=== PATIENT | male | born 1940 | race Caucasian/White ===

== ENCOUNTER → 2024-09-11 16:09 | Outpatient (CLI) | payer MEDICARE, SELFPAY | PROVIDERS: Visit Provider Physician Assistant Medical | DX: R30.0 Dysuria (principal) | CPT/HCPCS: 87086 ==

== ENCOUNTER → 2024-10-27 14:25 | Outpatient (CLI) | payer MEDICARE, SELFPAY | PROVIDERS: Visit Provider Nurse Practitioner Family | DX: R30.0 Dysuria (principal) | CPT/HCPCS: 87086 ==

== ENCOUNTER 2025-02-08 13:48 | Emergency (ER) | payer MEDICARE, SELFPAY ==
[2025-02-08] VITALS (25 sets, daily range): BP systolic 119–172; BP diastolic 64–123; PULSE 50–64; RESP 12–35; TEMP 36.8–36.9; O2SAT 91–98; BMI 29.2
--- NOTE | 2025-02-08 13:57 | EKG_ITS ---
[address] [address] Test Date: 2025-02-08 Pat Name: Ashvin Perdomo Department: Room: Gender: Male Dumper: : 1940 Requested By: Order Number: [id number] Reading MD: Grabiel Vaughn MD Measurements Intervals [place] Rate: 50 P: SC: QRS: 40 QRSD: 166 T: 152 QT: 480 QTc: 437 Interpretive Statements Ventricular-paced rhythm Electronically Signed On 02-08-2025 15:04:39 PDT by Grabiel Vaughn MD
--- NOTE | 2025-02-08 14:12 | DI.RAD.S_ITS ---
PROCEDURE: XR CHEST 1V INDICATIONS: chest pain TECHNIQUE: One view of the chest was acquired. COMPARISON: None. FINDINGS: Surgical changes and devices: Left pacemaker with leads terminating in the projection of the right atrium and right ventricle. Lungs and pleura: Low lung volumes without a focal consolidation. No pleural effusions or pneumothorax. Mediastinum: Mediastinal contours appear normal. Heart size is normal. 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 Overlying soft tissues appear unremarkable. IMPRESSION: No acute cardiothoracic process. Dictated by: Sean Milner M.D. on 02/08/2025 at 14:04 Approved by: Sean Milner M.D. on 02/08/2025 at 14:05
[2025-02-08 14:35] LABS: Hematocrit 43.6 % (41-53); Hemoglobin 15.1 g/dL (13.5-17.5); Mean Corpuscular HGB Conc 34.5 % (30-36); Mean Corpuscular Hemoglobin 33.2 PG (26-34); Mean Corpuscular Volume 96.1 fL (80-100); Platelet Count 205 X10^3/uL (150-400); Red Blood Cell Count 4.54 X10^6/uL (4.5-5.9); Red Cell Distribution Width 14.9 % (11.6-14.8); White Blood Cell Count 8.7 X10^3/uL (4.5-11.0)
[2025-02-08 14:36] LABS: Add Manual Diff / Slide Review YES
[2025-02-08 14:41] LABS: Prothrombin Time 11.3 SECONDS (9.4-12.5)
[2025-02-08 14:44] LABS: PTT Partial Thromboplastin Tim 32 SECONDS (25.1-36.5)
--- NOTE | 2025-02-08 14:50 | PC.NURSE ---
Pt reports having [employer] pacemaker. confirmed with cxr that pacer is [employer]. last time batteries were changed was [id number] per patient. attempted interogation without success. continues to states interrogation failed. EKG appears to have adequate capture that coincides with pulse. HR continues to be 50. unclear what rate pacer is set at. Pt does not have card in wallet to troubleshoot. AAOx3. denies CP or SOB at this time.
[2025-02-08 14:57] LABS: Neutrophils Absolute Manual 6351 /uL (3000-5900); Total Cells Counted 100
[2025-02-08 14:58] LABS: RBC Morphology Normal Morphology
[2025-02-08 15:01] LABS: Alanine Aminotransferase 56 IU/L (<50); Alkaline Phosphatase 78 U/L (38-126); Aspartate Aminotransferase 71 IU/L (17-59); BUN Creatinine Ratio 16.9 (6-22); Bilirubin Total 0.5 mg/dL (0.2-1.3); Blood Urea Nitrogen 21 mg/dL (9-20); Carbon Dioxide 21 mmol/L (22-32); Creatine Kinase 158 U/L (55-170); Estimated Glomerular Filt Rate 57 mL/min (>60); HEMOLYSIS 32 (0-50); Total Protein 6.4 g/dL (6.3-8.2)
[2025-02-08 15:09] LABS: Albumin 4.3 g/dL (3.5-5.0); Calcium 9.5 mg/dL (8.4-10.2); Chloride 107 mmol/L (98-107); Globulin 2.1 g/dL (1.7-4.1); Glucose 95 mg/dL (80-110); Lipase 99 U/L (23-300); Magnesium 1.9 mg/dL (1.6-2.3); NT-proBNP (BNP-Adult 18+) 1020 pg/mL (<450); Potassium 3.9 mmol/L (3.4-5.1); Sodium 140 mmol/L (137-145)
[2025-02-08 15:11] LABS: Troponin I 0.167 ng/mL (0.01-0.034)
--- NOTE | 2025-02-08 15:24 | DI.CT.S_ITS ---
PROCEDURE: CT ANGIO CHEST PE PROTOCOL INDICATIONS: inc trop, eval for PE TECHNIQUE: After the administration of intravenous contrast, 2 mm thick sections acquired from the pulmonary apices to the posterior costophrenic angles. 3-dimensional maximum intensity projection (MIP) coronal and sagittal reformats were then acquired through the thorax. For radiation dose reduction, the following was used: automated exposure control, adjustment of mA and/or kV according to patient size. COMPARISON: [facility], CR, XR CHEST 1V, 02/08/2025, 14:21. FINDINGS: Image quality: Diagnostic. Pulmonary arteries: Pulmonary arteries are normal in size, and demonstrate no intraluminal filling defects to suggest central pulmonary embolism. Lower Neck: No enlarged lymph nodes. Thyroid: Not well seen. Axillae: No enlarged lymph nodes. Chest Wall: A pacer device is seen. Bones: Age-appropriate bony degenerative changes are seen, including involving the shoulders. Lungs and Pleura: No pneumothorax or pleural effusions. Right middle lobe pulmonary nodules are seen, including an 8 mm nodule series 5 image 135. Low lung volumes are noted. This causes a crowded appearance to the lung markings and limits evaluation. Heart: Heart size is normal. No pericardial effusion. Thoracic Vessels: The ascending thoracic aortic aneurysm is mildly aneurysmal, measuring 4.3 cm transversely on coronal images. Mediastinum and Adriana: No enlarged lymph nodes. Esophagus: No wall thickening. No hiatal hernia. Upper Abdomen: Low-density presumed cysts can be seen involving the liver. The visualized portions of the upper abdominal structures are otherwise unremarkable for imaging technique. IMPRESSION: No pulmonary embolus. No acute cardiopulmonary process. Additional findings: Pacer device Mildly aneurysmal ascending thoracic aorta, 4.3 cm Presumed liver cysts Dictated by: John Shook M.D. on 02/08/2025 at 15:07 Approved by: John Shook M.D. on 02/08/2025 at 15:09
--- NOTE | 2025-02-08 16:15 | ED.ARRPALP ---
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 Denies history of coronary artery disease. No diabetes, no hypertension, nonsmoker. Takes statin for lipids. He is a resident at [facility], this morning attempted to walk by himself from [facility] to adjacent [employer], when he was walking back he felt quite short of breath, bending over due to his shortness of breath. He did not recall having any chest discomfort, nor any nausea or vomiting or diaphoresis. No neck pain or back pain or arm pain or jaw pains. He continued to feel short of breath. Here for further evaluation. Related Data Home Medications Medication Instructions Recorded Confirmed atorvastatin 10 mg tablet 5 mg PO ONCE PM 09/11/24 10/27/24 bupropion HCl 100 mg tablet 100 mg PO BID 09/11/24 10/27/24 pregabalin 300 mg capsule 300 mg PO BID 09/11/24 10/27/24 Allergies Allergy/AdvReac Type Severity Reaction Status Date / Time No Known Drug Allergies Allergy Unverified 09/11/24 16:08 Patient History Social History Smoking Status: Never smoker Smoking Status: Never smoker Exam Narrative Exam Narrative: GENERAL: Well-developed patient, in mild distress. HEAD: Atraumatic. Normocephalic. EYES: Pupils equal round and reactive. Extraocular motions intact. No scleral icterus. No injection or drainage. ENT: Nose without bleeding, purulent drainage. Throat without erythema, tonsillar hypertrophy or exudate. Airway patent. NECK: Trachea midline. Non tender CARDIOVASCULAR: Regular rate and rhythm without murmurs, gallops, or rubs. RESPIRATORY: Clear to auscultation. Breath sounds equal bilaterally. No wheezes, rales, or rhonchi. Left upper chest pacer site, well-healed scar, no crepitance or redness. GASTROINTESTINAL: Abdomen soft, non-tender, nondistended. EXTREMITIES: No edema or joint tenderness. BACK: Nontender without deformity or crepitance. No flank tenderness. NEURO: AOx3. Motor functions grossly nonfocal SKIN: No rash or erythema of visible areas Initial Vital Signs Initial Vital Signs: Vital Signs Temperature 98.4 F 02/08/25 14:00 Pulse Rate 50 L 02/08/25 14:00 Respiratory Rate 16 02/08/25 14:00 Blood Pressure 151/67 H 02/08/25 14:00 Pulse Oximetry 96 02/08/25 14:00 Oxygen Delivery Method Room Air 02/08/25 14:00 Course Orders Ordered: Discontinued Medications Aspirin (Aspirin 81 Mg Chew Tab) 324 mg PO NOW ONE Stop: 02/08/25 17:21 Last Admin: 02/08/25 17:27 Dose: 324 mg Documented By: ENOC Atorvastatin Calcium (Atorvastatin 20 Mg Tablet) 80 mg PO NOW ONE Stop: 02/08/25 17:21 Last Admin: 02/08/25 17:28 Dose: 80 mg Documented By: ENOC Heparin Sodium (Porcine) (Heparin 5,000 Unit/Ml Vial) 5,000 unit 60 unit/kg (5000 unit) IV NOW ONE Stop: 02/08/25 17:01 Last Admin: 02/08/25 17:24 Dose: 5,000 unit Documented By: ENOC Heparin Sodium/Dextrose (Heparin Drip) 25,000 unit in 500 mls @ 20.902 mls/hr IV CONT JEFF; Protocol Last Titration: 02/08/25 20:06 Dose: 11.48 units/kg/hr, 20 mls/hr Documented By: ENOC(2) Co-signed By: TEOFILO Admin: 02/08/25 17:26 Dose: 12 units/kg/hr, 20.902 mls/hr Documented By: ENOC Co-signed By: TRACE Vital Signs Vital signs: Vital Signs - 8 hr 02/08/25 14:00 02/08/25 14:10 02/08/25 14:12 Temperature 98.4 F Pulse Rate 50 L 50 L 50 L Respiratory Rate 16 19 Blood Pressure 151/67 H Pulse Oximetry 96 92 92 Oxygen Delivery Method Room Air 02/08/25 14:12 02/08/25 14:15 02/08/25 14:30 Temperature Pulse Rate 50 L 50 L Respiratory Rate 22 25 H Blood Pressure 138/64 Pulse Oximetry 92 91 Oxygen Delivery Method 02/08/25 14:45 02/08/25 14:56 02/08/25 14:56 Temperature Pulse Rate 50 L 50 L Respiratory Rate 21 16 Blood Pressure 119/66 Pulse Oximetry 92 95 Oxygen Delivery Method 02/08/25 15:00 02/08/25 15:00 02/08/25 15:30 Temperature Pulse Rate 50 L 50 L Respiratory Rate 16 18 Blood Pressure 128/70 Pulse Oximetry 93 96 Oxygen Delivery Method 02/08/25 16:00 02/08/25 16:11 02/08/25 16:11 Temperature Pulse Rate 50 L 50 L Respiratory Rate 20 20 Blood Pressure 158/67 H Pulse Oximetry 97 96 Oxygen Delivery Method 02/08/25 16:22 02/08/25 16:30 02/08/25 16:31 Temperature Pulse Rate 52 L Respiratory Rate Blood Pressure 158/70 H 153/68 H Pulse Oximetry Oxygen Delivery Method 02/08/25 17:00 02/08/25 17:01 02/08/25 17:01 Temperature Pulse Rate 51 L 50 L Respiratory Rate 35 H 19 Blood Pressure 172/123 H Pulse Oximetry 98 Oxygen Delivery Method 02/08/25 17:30 02/08/25 18:00 02/08/25 18:30 Temperature Pulse Rate 50 L Respiratory Rate 23 14 Blood Pressure Pulse Oximetry 96 97 96 Oxygen Delivery Method 02/08/25 19:06 02/08/25 19:06 Temperature Pulse Rate 50 L Respiratory Rate 20 Blood Pressure 131/85 Pulse Oximetry 97 Oxygen Delivery Method MDM - Arrhythmia/Palpitations Lab Data Attestation: I reviewed the patient's lab results. Lab results narrative: White blood cell count 8700, hemoglobin 15.1, platelets adequate. Glucose 95. BUN 21 with creatinine 1.24. Sodium 140, potassium 3.9, serum CO2 21. BUN 21 with creatinine 1.24. Liver functions show mild transaminitis, otherwise negative. Lipase normal. Troponin 0.167 elevated. Interval repeat troponin 0.26 further elevated. BNP 1020. 02/08/25 14:21 02/08/25 14:21 Labs: Lab Results 02/08/25 02/08/25 Range/Units 14:21 16:25 WBC 8.7 (4.5-11.0) X10^3/uL RBC 4.54 (4.5-5.9) X10^6/uL Hgb 15.1 (13.5-17.5) g/dL Hct 43.6 (41-53) % MCV 96.1 (80-100) fL MCH 33.2 (26-34) PG MCHC 34.5 (30-36) % RDW 14.9 H (11.6-14.8) % Plt Count 205 (150-400) X10^3/uL Neut % (Auto) Not Reportable Lymph % (Auto) Not Reportable Cooper % (Auto) Not Reportable Eos % (Auto) Not Reportable Baso % (Auto) Not Reportable Lymph # (Auto) Not Reportable Cooper # (Auto) Not Reportable Baso # (Auto) Not Reportable Total Counted 100 Seg Neutrophils % 73.0 H (38-70) % Lymphocytes % (Manual) 14.0 L (25-45) % Monocytes % (Manual) 11.0 (2-11) % Eosinophils % (Manual) 1.0 L (2-4) % Basophils % (Manual) 1.0 (0-1) % Neutrophils # (Manual) 6351 H (0573-2689) /uL RBC Morphology Normal morphology PT 11.3 (9.4-12.5) SECONDS INR 1.0 (0.9-1.3) APTT 32 (25.1-36.5) SECONDS Sodium 140 (137-145) mmol/L Potassium 3.9 (3.4-5.1) mmol/L Chloride 107 (98-107) mmol/L Carbon Dioxide 21 L (22-32) mmol/L BUN 21 H (9-20) mg/dL Creatinine 1.24 (0.66-1.25) mg/dL Estimated GFR 57 L (>60) mL/min BUN/Creatinine Ratio 16.9 (6-22) Glucose 95 (80-110) mg/dL Calcium 9.5 (8.4-10.2) mg/dL Magnesium 1.9 (1.6-2.3) mg/dL Total Bilirubin 0.5 (0.2-1.3) mg/dL AST 71 H (17-59) IU/L ALT 56 H (<50) IU/L Alkaline Phosphatase 78 (38-126) U/L Total Creatine Kinase 158 (55-170) U/L Troponin I 0.167 H* 0.426 H* (0.01-0.034) ng/mL NT-Pro-B Natriuret Pep 1020 H (<450) pg/mL Total Protein 6.4 (6.3-8.2) g/dL Albumin 4.3 (3.5-5.0) g/dL Globulin 2.1 (1.7-4.1) g/dL Albumin/Globulin Ratio 2.0 (1.0-2.8) Lipase 99 (23-300) U/L ECG Data Attestation: I personally reviewed and interpreted this ECG as follows: Interpretation: Ventricular paced rhythm with rate 50. QRS 166, QTC 437. 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 Screening EKG shows paced rhythm. Pacer interrogation requested. Initial blood work shows initial troponin 0.16 elevated. Patient not having any current symptoms, no nausea or vomiting, no shortness of breath, no chest discomfort. Chest x-ray showed no acute changes, cardiac pacemaker noted. See radiology report. CT angiogram chest showed no pulmonary embolus, no acute changes. See radiology report. Interval repeat troponin elevated further 0.426. We will treat as non STEMI, initiate IV heparin bolus then infusion. Oral aspirin. Initial request for [employer] pacemaker, however tech was contacted, instructed nursing to check the battery given that it has been possibly 11 years since the last battery check, magnet place, extremely low battery. 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 Patient informed about troponin elevation and pacemaker magnet battery life extremely low. We will need transfer for Cardiology capable facility, cardiac cardiac cath technologist capable facility, and likely replacement of low battery. Patient expressed understanding of need for replacement and transfer for higher elbow cardiology care. We will initiate transfer, BODY SHOP WORKER to query facilities. 173, case discussed with [facility] cardiology Dr. Meeks who accepts patient for transfer. Wait listed at [facility], we will continue coring alternate Cardiology capable facilities. 1839, case discussed with cardiology Ulices Ornelas await call back from hospitalist 185, case discussed with hospitalist at [facility] Dr. Colon who accepts patient for transfer Critical Care Time Critical Care Time Critical Care Time: No Discharge Plan Departure Patient Disposition: [facility] Clinical Impression: Exertional shortness of breath, Non-ST elevation (NSTEMI) myocardial infarction, History of cardiac pacemaker, Pacemaker at end of battery life Prescriptions: No Action atorvastatin 10 mg tablet 5 mg PO ONCE PM pregabalin 300 mg capsule 300 mg PO BID bupropion HCl 100 mg tablet 100 mg PO BID Referrals: Miscellaneous,Doctor, [Primary Care Provider] -
--- NOTE | 2025-02-08 16:33 | EKG_ITS ---
[facility] [address] [place] [address] Test Date: 2025-02-08 Pat Name: Ashvin Perdomo Department: [facility] Room: Gender: Male Injection Specialist: LUCIO : 1940 Requested By: Order Number: [id number] Reading MD: Grabiel Vaughn MD Measurements Intervals [place] Rate: 50 P: IA: QRS: 205 QRSD: 164 T: 54 QT: 486 QTc: 443 Interpretive Statements Sinus rhythm with complete heart block and Ventricular-paced rhythm Electronically Signed On 02-09-2025 7:43:05 PDT by Grabiel Vaughn MD
[2025-02-08 17:00] LABS: Troponin I 0.426 ng/mL (0.01-0.034)
--- NOTE | 2025-02-08 17:07 | PC.NURSE ---
Unable to interrogate pts pacemaker w/ ER BS. Called BS. Claim Processor on way out. En route RN talked w/ Rashaad (rep w/ [employer]) (phone number ) who stated he wanted this RN to check battery life of pt's pacemaker by placing magnet over pt pacemaker--stated 85bpm on monitor indicates significantly low battery and 100bpm is full battery. Alerted Rashaad that pt HR was 84bpm. HR returned to paced 50bpm when magnet removed. Rashaad stated he did not feel comfortable interrogating pts pacemaker because it had a high risk of draining pt battery and would thus need transcutaneous pacing or emergent malthouse laborer for battery replacement. MD Quiñones informed.
[2025-02-08] MEDS: HEPARIN 5,000 UNIT/ML VIAL 5000 UNIT IV (17:24)
[2025-02-08] MEDS: HEPARIN DRIP 25,000 UNIT/500 ML IV.SOLN 20.902 UNIT IV (17:26)
[2025-02-08] MEDS: ASPIRIN 81 MG CHEW TAB 324 MG PO (17:27)
[2025-02-08] MEDS: ATORVASTATIN 20 MG TABLET 80 MG PO (17:28)
--- NOTE | 2025-02-08 21:26 | PC.NURSE ---
Addendum entered by Deedee Gordon R.N. 02/08/25 21:36: Care transferred to [facility] CC CALIXTO Kiser Original Note: Care transferred to [facility] CC RN for transport to [facility]
== END 2025-02-08 21:35 | disposition short-term general hospital (02) ==
PROVIDERS: Emergency Provider Emergency Medicine
DX: I21.4 Non-ST elevation (NSTEMI) myocardial infarction (principal); R06.02 Shortness of breath; Z95.0 Presence of cardiac pacemaker; Z45.010 Encounter for checking and testing of cardiac pacemaker pulse generator [battery]
CPT/HCPCS: 36415; 71045; 71275; 80053; 82550; 83690; 83735; 83880; 84484; 85007; 85025; 85610; 85730; 93005; 93010; 96365; 96366; 96375; 99284; 99285; 99291; 99292; J1644; Q9967

== ENCOUNTER 2025-02-21 22:30 | Emergency (ER) | payer MEDICARE, SELFPAY ==
[2025-02-21 22:30] VITALS: BP 147/72; PULSE 83; RESP 14; TEMP 37.1; O2SAT 91; BMI 27.7
[2025-02-21 22:35] VITALS: BP 137/72; PULSE 60; O2SAT 92
--- NOTE | 2025-02-21 22:37 | EKG_ITS ---
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
--- NOTE | 2025-02-21 22:41 | DI.CT.S_ITS ---
PROCEDURE: CT CERVICAL SPINE WO CON INDICATIONS: fall, on asa/plavix, recent pacemaker placed. TECHNIQUE: Noncontrast 3 mm thick sections acquired from the skull base to the T4 level. Sagittal and coronal reformats were then constructed. For radiation dose reduction, the following was used: automated exposure control, adjustment of mA and/or kV according to patient size. COMPARISON: Merged With [facility], CT, CT HEAD/BRAIN WO CON, 02/21/2025, 22:48. Merged With [facility], CR, XR CHEST 1V, 02/21/2025, 22:50. FINDINGS: Image quality: This examination is somewhat limited by quantum mottle artifact. Bones: No fractures or dislocations. Visualized superior ribs are intact. Levoconvex cervical thoracic scoliotic curvature can be seen. There is minimal anterolisthesis at the C3-C4 level. Focal degenerative change is seen involving the C1-C2 interface anteriorly. Mild disc space narrowing can be seen at C3-C4. There is at least moderate disc space narrowing seen at C4-C5, C5-C6, and C6-C7. Endplate irregularity and sclerosis can be seen. Posteriorly directed endplate osteophytes can be seen, which are worst inferiorly. Multiple levels of significant facet hypertrophy can be seen, left worse than right. Soft tissues: Prevertebral soft tissues are normal in thickness. No paravertebral hematomas. No apical pneumothoraces. Chronic appearing, partially calcified lesions can be seen involving the medial aspects of both shoulders. A left-sided pacer device is partially seen. Atherosclerotic calcification is noted. IMPRESSION: No displaced fracture or traumatic subluxation. Multiple levels of significant underlying degenerative change can be seen, which are worst inferiorly. Additional findings: Left-sided pacer device Chronic appearing, partially calcified lesions involving both medial shoulders. Dictated by: John Shook M.D. on 02/21/2025 at 22:20 Approved by: John Shook M.D. on 02/21/2025 at 22:22
--- NOTE | 2025-02-21 22:41 | DI.CT.S_ITS ---
PROCEDURE: CT HEAD/BRAIN WO CON INDICATIONS: fall, on asa/plavix, recent pacemaker placed. TECHNIQUE: Noncontrast 4.5 mm thick angled axial sections acquired from the foramen magnum to the vertex, with coronal and sagittal reformats. For radiation dose reduction, the following was used: automated exposure control, adjustment of mA and/or kV according to patient size. COMPARISON: [facility], CR, XR CHEST 1V, 02/21/2025, 22:50. [facility], CT, CT CERVICAL SPINE WO CON, 02/21/2025, 22:48. FINDINGS: Image quality: Streak artifact can be seen through the skull base. CSF spaces: Basal cisterns are patent. No extra-axial fluid collections. The ventricles are symmetric in size and shape. Brain: No intracranial bleeds or masses. There is cerebral volume loss for age, with resultant ventricular and sulcal prominence. There are periventricular and deep white matter chronic small vessel ischemic changes. There is intracranial internal carotid artery atherosclerosis. Symmetric calcification can be seen involving the basal ganglia, which is considered to be normal for age. Skull and face: There is a minimal scalp hematoma seen superiorly and on the right, as on series 4, image 13. No associated calvarial fracture can be seen. Calvarium and visualized facial bones appear intact, without suspicious lesions. Sinuses: Moderate mucosal thickening can be seen within the right maxillary sinus. Milder mucosal thickening can be seen elsewhere within the paranasal sinuses. No abnormal fluid is seen within the mastoid air cells. IMPRESSION: Minimal scalp hematoma seen superiorly and on the right, without an associated calvarial fracture. No acute intracranial hemorrhage is seen. No acute intracranial process is seen. Focal right maxillary sinus disease noted. Dictated by: John Shook M.D. on 02/21/2025 at 22:18 Approved by: John Shook M.D. on 02/21/2025 at 22:20
--- NOTE | 2025-02-21 22:42 | DI.RAD.S_ITS ---
PROCEDURE: XR CHEST 1V INDICATIONS: fall, found on ground TECHNIQUE: One view of the chest was acquired. COMPARISON: [facility], CR, XR CHEST 2 VIEWS, 02/10/2025, 11:15. [facility], CT, CT HEAD/BRAIN WO CON, 02/21/2025, 22:48. [facility], CT, CT CERVICAL SPINE WO CON, 02/21/2025, 22:48. [facility], CR, XR CHEST 1V, 02/08/2025, 14:21. FINDINGS: Surgical changes and devices: A pacer device is seen. The leads are seen in stable positions. Lungs and pleura: On this semiupright portable chest examination, no large pneumothorax or large pleural effusions are seen. No focal infiltrates are seen. Low lung volumes are noted. This causes a crowded appearance to the lung markings and limits evaluation. Mediastinum: The cardiac contours are within normal limits. The aorta demonstrates calcification and tortuosity. Bones and chest wall: No displaced rib fracture is identified. No suspicious bony lesions. Age-appropriate bony degenerative changes are seen, including involving the shoulders. Mild dextroconvex scoliotic curvature is seen. Overlying soft tissues appear unremarkable. IMPRESSION: Limited portable chest examination, without a significant cardiopulmonary abnormality identified. If there is strong clinical concern for chest trauma in this patient, please consider a follow-up chest CT with IV contrast for further evaluation. Dictated by: John Shook M.D. on 02/21/2025 at 22:14 Approved by: John Shook M.D. on 02/21/2025 at 22:15
--- NOTE | 2025-02-21 22:43 | ED.GENADULT ---
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 Patient presents from [facility] he was in the independent living facility portion. Was found by staff on the floor. Patient states he fell. States he was fell twice today, states he has balance issues at baseline. He does not think he hit his head but not sure. He was little bit confused unclear if this is his baseline. He denies headache no neck pain, no back pain. Patient denies any chest pain or shortness of breath. States his incision seems to be healing well in his aunt causing any pain. Denies any abdominal back or flank pain. Denies any nausea or vomiting. Denies any diarrhea or constipation. No dysuria urgency or frequency. He does wear a brief period he denies any injury or weakness in his extremities. Patient states he had a fall at about 7:00 a.m. this morning has not fell again this evening. States he was just sort of lost his balance. Denies any syncope. He states he was taking a blood thinner just started in the last day. Per report he was on aspirin and Plavix does have some bruising consistent with having heparin or Lovenox shots and recent hospitalization. Patient states he thinks he was in [place] but his most recent ER visit [facility] that he was at [facility] transferred from here on 02/08/2025. He states he does have some memory issues at baseline. He denies any drug allergies. Denies any surgeries besides his pacemaker battery replacement. Denies tobacco, states 1 shot of bourbon weekly none today, denies recreational drugs. Related Data Home Medications Medication Instructions Recorded Confirmed atorvastatin 10 mg tablet 5 mg PO ONCE PM 09/11/24 10/27/24 bupropion HCl 100 mg tablet 100 mg PO BID 09/11/24 10/27/24 pregabalin 300 mg capsule 300 mg PO BID 09/11/24 10/27/24 Allergies Allergy/AdvReac Type Severity Reaction Status Date / Time No Known Drug Allergies Allergy Unverified 09/11/24 16:08 Review of Systems Review of Systems ROS Unobtainable: All systems reviewed & are unremarkable except as noted in HPI and below Exam Narrative Exam Narrative: GEN: Patient appears in no acute distress. HEAD: No evidence of trauma, no raccoon/Mendoza sign. NECK: Nontender, painless range of motion, trachea midline Negative Nexus criteria, positive line tenderness, distracting injury, positive altered mental status patient is mildly confused, no neuro deficit, recent EtOH. EYES: PERRLA, EOMI ENT: External inspection normal, trachea is midline, TM's are normal no hemotypanum, Nares are clear, no septal hematoma, no dental or oral injury, airway is normal and with normal occlusion, No bony tenderness RESP: Chest is nontender and has symmetric movement, no ecchymosis, breath sounds are normal no crackles, wheezes or rales, patient has not appears to be healing incision over his pacemaker it is clean dry and intact without any erythema or tenderness. No signs of dehiscence. CVS: Heart sounds are normal, no murmur noted, No JVD. ABG/GI: Nontender, soft, normal bowel sounds, no distention, no organomegaly, pelvic rock is negative, patient has several small areas of ecchymosis on his lower abdomen appears to have a puncture wound appears consistent with likely injections of heparin or Lovenox. NEURO: Oriented AOx3, neuro is grossly intact, sensation and motor is normal all 4 extremities moving, cranial nerves II through XII are intact, GCS is 14 PSYCH: Normal mood and affect SKIN: Patient was some small abrasions and ecchymosis on extremities that appear to be in various stages of healing, warm and dry, no crepitus and without decubitus BACK: No CVA tenderness, no vertebral tenderness, no step-off's, no crepitus EXT: Atraumatic, hips are nontender, no pedal edema, normal color and temperature, normal range of motion of extremities with normal tendon exam, 2+ pulses in all four extremities Initial Vital Signs Initial Vital Signs: Vital Signs Temperature 98.8 F 02/21/25 22:30 Pulse Rate 83 02/21/25 22:30 Respiratory Rate 14 02/21/25 22:30 Blood Pressure 147/72 H 02/21/25 22:30 Pulse Oximetry 91 02/21/25 22:30 Oxygen Delivery Method Room Air 02/21/25 22:30 Course Orders Ordered: Discontinued Medications Cephalexin HCl (Cephalexin 250 Mg Capsule) 500 mg PO NOW ONE Stop: 02/22/25 04:46 Last Admin: 02/22/25 05:09 Dose: 500 mg Documented By: Sodium Chloride (Normal Saline 0.9%) 1,000 mls @ 1,000 mls/hr IV BOLUS ONE Stop: 02/22/25 03:49 Last Infusion: 02/22/25 03:55 Dose: Infused Documented By: Admin: 02/22/25 03:00 Dose: 1,000 mls/hr Documented By: NICOLE Vital Signs Vital signs: Vital Signs - 8 hr 02/21/25 23:01 02/21/25 23:30 02/22/25 00:00 Pulse Rate 86 82 81 Respiratory Rate 16 20 Blood Pressure Pulse Oximetry 91 93 Oxygen Delivery Method Room Air 02/22/25 00:30 02/22/25 00:33 02/22/25 00:33 Pulse Rate 81 82 Respiratory Rate 16 24 Blood Pressure 135/76 Pulse Oximetry 92 95 Oxygen Delivery Method 02/22/25 01:00 02/22/25 01:00 02/22/25 01:30 Pulse Rate 81 80 Respiratory Rate 17 17 Blood Pressure 120/78 Pulse Oximetry 94 95 Oxygen Delivery Method Room Air 02/22/25 01:30 Pulse Rate Respiratory Rate Blood Pressure 129/85 Pulse Oximetry Oxygen Delivery Method Medical Decision Making Lab Data 02/21/25 22:38 02/21/25 22:38 Labs: Lab Results 02/21/25 02/22/25 Range/Units 22:38 04:10 WBC 10.8 (4.5-11.0) X10^3/uL RBC 4.64 (4.5-5.9) X10^6/uL Hgb 15.5 (13.5-17.5) g/dL Hct 44.3 (41-53) % MCV 95.6 (80-100) fL MCH 33.3 (26-34) PG MCHC 34.9 (30-36) % RDW 14.2 (11.6-14.8) % Plt Count 244 (150-400) X10^3/uL Neut % (Auto) 64.2 (50-75) % Lymph % (Auto) 16.4 L (25-40) % [place] % (Auto) 18.2 H (3-14) % Eos % (Auto) 0.6 L (2-4) % Baso % (Auto) 0.6 (0-2) % Neut # (Auto) 6900 (0376-3987) /uL Lymph # (Auto) 1800 (5988-0409) /uL [place] # (Auto) 2000 H (0-900) /uL Eos # (Auto) 100 (0-450) /uL Baso # (Auto) 100 (0-100) /uL PT 12.5 (9.4-12.5) SECONDS INR 1.1 (0.9-1.3) APTT 31 (25.1-36.5) SECONDS Sodium 140 (137-145) mmol/L Potassium 4.1 (3.4-5.1) mmol/L Chloride 108 H (98-107) mmol/L Carbon Dioxide 22 (22-32) mmol/L BUN 37 H (9-20) mg/dL Creatinine 1.23 (0.66-1.25) mg/dL Estimated GFR 57 L (>60) mL/min BUN/Creatinine Ratio 30.1 H (6-22) Glucose 132 H (80-110) mg/dL Calcium 9.9 (8.4-10.2) mg/dL Total Bilirubin 0.7 (0.2-1.3) mg/dL AST 48 (17-59) IU/L ALT 31 (<50) IU/L Alkaline Phosphatase 93 (38-126) U/L Total Creatine Kinase 323 H (55-170) U/L Troponin I < 0.012 (0.01-0.034) ng/mL NT-Pro-B Natriuret Pep 265 (<450) pg/mL Total Protein 7.0 (6.3-8.2) g/dL Albumin 4.4 (3.5-5.0) g/dL Globulin 2.6 (1.7-4.1) g/dL Albumin/Globulin Ratio 1.7 (1.0-2.8) Lipase 75 (23-300) U/L Urine Color Yellow Urine Appearance Slightly cloudy Urine pH 5.5 (4.5-8.0) Ur Specific [place] >=1.030 H (1.000-1.035) Urine Protein Negative (Negative) Urine Glucose (UA) Negative (Negative) g/dL Urine Ketones Trace H (NEGATIVE) Urine Occult Blood 3+ H (Negative) Urine Nitrate Negative (Negative) Urine Bilirubin Negative (NEGATIVE) Urine Urobilinogen 0.2 (0.2) E.U./dL Ur Leukocyte Esterase Trace H (NEGATIVE) Urine RBC 10-30/hpf H (0-5/HPF) Urine WBC 1-5/hpf (0-5/HPF) Ur Squamous Epith Cells 0-1 /hpf (0-5/HPF) Urine Bacteria Few (2-10) H (None) Ur Culture Indicated? Specimen cultured Vol Urine Centrifuged 10ml (spun) Point of Care Testing Glucose POC 135 Point of care testing: Point of Care Testing Glucose POC 135 ECG Data Attestation: I personally reviewed and interpreted this ECG as follows: Interpretation: Atrial sensed ventricularly paced rhythm rate of 90, SC 160 QRS of 168 QTC of 513. MDM Narrative Medical decision making narrative: Labs show normal white count, hemoglobin and platelets, coags are appropriate, chloride 108 BUN 37 creatinine is 1.23, glucose is 132 electrolytes are otherwise appropriate, total CK is 323 troponins less than 0.012 with a BNP of 265. EKG shows ventricularly paced rhythm. Urine shows trace ketones 3+ blood trace leuks 10-30 RBCs 1-5 WBCs, 1 squamous few bacteria was sent for culture. Chest x-ray shows no if you can not acute change Head CT shows minimal scalp hematoma she was superiorly on the right without an associated calvarial fracture no acute intracranial hemorrhage, no acute intracranial process. Focal right maxillary sinus disease. CT cervical spine shows no displaced fracture or traumatic subluxation. Multiple levels of significant underlying degenerative change can be seen which are worsened fairly. Left-sided pacer device. Chronic appearing partially calcified lesions involving both medial shoulders. Patient did not have to give a urine, had bladder scan with no change was given fluids. Patient ambulated with a walker here in the department and did well. Urine shows potential UTI treated with oral antibiotic. Patient had cephalexin and fluids here in the department. Patient does have some confusion he indicates this is normal. Unclear if this is baseline. Call out to family. Patient's discharge from [facility] from [facility] notes unspecified cognitive impairment leading differential diagnosis of vascular dementia. Spoke with patient's brother and [id number] sounds like he is at his baseline they live out of state, his power of land manager also lives out of state but he was some family friends who live locally. They note that he has had some cognitive decline over time confusion is normal for him. His family we will notify his power of land manager. Discharge Plan Departure Patient Disposition: Home Clinical Impression: UTI (urinary tract infection) Instructions: DI for Urinary Tract Infection (UTI) Activity Restrictions/Additional Instructions: Please follow up for recheck. Your workup today did show potential UTI or bladder infection this can sometimes cause weakness or confusion. Take oral antibiotics until completed. Prescription sent to [facility] in [place]. Please return for fevers, worsening symptoms, new chest pain or shortness of breath, passing out, vomiting, new weakness or other new or concerning changes. Prescriptions: No Action atorvastatin 10 mg tablet 5 mg PO ONCE PM pregabalin 300 mg capsule 300 mg PO BID bupropion HCl 100 mg tablet 100 mg PO BID Referrals: Miscellaneous,Doctor, [Primary Care Provider] - Stand Alone Forms: Patient Portal/API/Survey
[2025-02-21 22:54] LABS: Add Manual Diff / Slide Review NO; Basophils Absolute Auto 100 /uL (0-100); Basophils Percent Auto 0.6 % (0-2); Eosinophils Absolute Auto 100 /uL (0-450); Eosinophils Percent Auto 0.6 % (2-4); Hematocrit 44.3 % (41-53); Hemoglobin 15.5 g/dL (13.5-17.5); Lymphocytes Absolute Auto 1800 /uL (1100-4500); Lymphocytes Percent Auto 16.4 % (25-40); Mean Corpuscular HGB Conc 34.9 % (30-36); Mean Corpuscular Hemoglobin 33.3 PG (26-34); Mean Corpuscular Volume 95.6 fL (80-100); Monocytes Absolute Auto 2000 /uL (0-900); Monocytes Percent Auto 18.2 % (3-14); Neutrophils Absolute Auto 6900 /uL (1500-7000); Neutrophils Percent Auto 64.2 % (50-75); Platelet Count 244 X10^3/uL (150-400); Red Blood Cell Count 4.64 X10^6/uL (4.5-5.9); Red Cell Distribution Width 14.2 % (11.6-14.8); White Blood Cell Count 10.8 X10^3/uL (4.5-11.0)
[2025-02-21 23:01] VITALS: PULSE 86; O2SAT 91
[2025-02-21 23:04] LABS: INR 1.1 (0.9-1.3); Prothrombin Time 12.5 SECONDS (9.4-12.5)
[2025-02-21 23:07] LABS: PTT Partial Thromboplastin Tim 31 SECONDS (25.1-36.5)
[2025-02-21 23:08] LABS: Alanine Aminotransferase 31 IU/L (<50); Albumin 4.4 g/dL (3.5-5.0); Albumin Globulin Ratio 1.7 (1.0-2.8); Alkaline Phosphatase 93 U/L (38-126); Aspartate Aminotransferase 48 IU/L (17-59); BUN Creatinine Ratio 30.1 (6-22); Bilirubin Total 0.7 mg/dL (0.2-1.3); Blood Urea Nitrogen 37 mg/dL (9-20); Calcium 9.9 mg/dL (8.4-10.2); Carbon Dioxide 22 mmol/L (22-32); Chloride 108 mmol/L (98-107); Creatine Kinase 323 U/L (55-170); Estimated Glomerular Filt Rate 57 mL/min (>60); Globulin 2.6 g/dL (1.7-4.1); Glucose 132 mg/dL (80-110); HEMOLYSIS 19 (0-50); Lipase 75 U/L (23-300); Potassium 4.1 mmol/L (3.4-5.1); Sodium 140 mmol/L (137-145)
[2025-02-21 23:19] LABS: NT-proBNP (BNP-Adult 18+) 265 pg/mL (<450); Troponin I < 0.012 ng/mL (0.01-0.034)
[2025-02-21 23:30] VITALS: PULSE 82; RESP 16
[2025-02-22] VITALS (14 sets, daily range): BP systolic 118–152; BP diastolic 72–85; PULSE 66–82; RESP 12–24; O2SAT 92–99
[2025-02-22] MEDS: SODIUM CHLORIDE 0.9% 1,000 ML 1000 ML IV (03:00)
--- NOTE | 2025-02-22 04:10 | PC.NURSE ---
cath urine specimen obtained and sent to lab, pt tolerated well
[2025-02-22 04:19] LABS: Bilirubin Urine UA NEGATIVE (NEGATIVE); Color Urine UA YELLOW; Glucose Urine UA NEGATIVE (Negative); Ketones Urine UA TRACE (NEGATIVE); Leukocyte Esterase Urine UA TRACE (NEGATIVE); Nitrite Urine UA NEGATIVE (Negative); Occult Blood Urine UA 3+ (Negative); Protein Urine UA NEGATIVE (Negative); Specific Gravity Urine UA >=1.030 (1.000-1.035); Urobilinogen Urine UA 0.2 E.U./dL (0.2); pH Urine UA 5.5 (4.5-8.0)
[2025-02-22 04:36] LABS: Appearance Urine UA Slightly Cloudy; Bacteria Urine Few (2-10); Culture Indicated Urine Specimen Cultured; RBC Urine 10-30/HPF (0-5/HPF); Squamous Epithelial Cell Urine 0-1 /HPF (0-5/HPF); Urine Volume 10mL (spun); WBC Urine 1-5/HPF (0-5/HPF)
[2025-02-22] MEDS: cephALEXin 250 MG CAPSULE 500 MG PO (05:09)
--- NOTE | 2025-02-22 07:15 | PC.NURSE ---
Pt asking if his brother or his mother is picking him up. I informed pt we are getting him a taxi back to [facility]. Pt states ah yes, thats my home. Pt changed into paper scrubs and wheeled out to taxi. [facility] to assist pt out of taxi at facility.
--- NOTE | 2025-02-22 07:40 | PC.NURSE ---
I called [facility] to verify they received the discharge paperwork. I called the 24hours caregiver phone number [phone]. No one answered and the phone is not accepting voicemails.
== END 2025-02-22 08:05 | disposition home or self-care (01) ==
PROVIDERS: Emergency Provider Emergency Medicine
DX: N39.0 Urinary tract infection, site not specified (principal); R41.0 Disorientation, unspecified; S00.03XA Contusion of scalp, initial encounter; R29.6 Repeated falls; W18.30XA Fall on same level, unspecified, initial encounter; Z95.0 Presence of cardiac pacemaker; Z79.02 Long term (current) use of antithrombotics/antiplatelets; Z86.79 Personal history of other diseases of the circulatory system
CPT/HCPCS: 36415; 70450; 71045; 72125; 80053; 81001; 82550; 83690; 83880; 84484; 85025; 85610; 85730; 87086; 93005; 96360; 99284